=== PATIENT | female | born 1930 | race Caucasian/White ===

== ENCOUNTER 2017-06-07 13:21 | Inpatient (IN) | payer MEDICARE, OTHER ==
[2017-06-07 14:02] LABS: BASO % 0.3 % (0.0-1.0); EOS # 0.1 10^3/uL (0.0-0.50); HEMATOCRIT 37.7 % (36.0-47.0); IMMATURE GRANULOCYTE % 0.3 % (0-3.0); LYMPH # 0.5 10^3/uL (1.5-4.5); LYMPH % 4.9 % (24.0-44.0); MEAN CORPUSCULAR HGB CONC 31.8 g/dl (32.0-36.5); MEAN CORPUSCULAR VOLUME 94.3 fl (80.0-96.0); MONO # 1.2 10^3/uL (0.0-0.8); MONO % 12.2 % (0.0-5.0); NEUTROPHILS # 8.2 10^3/uL (1.8-7.7); NEUTROPHILS % 81.3 % (36.0-66.0); PLATELET COUNT, AUTOMATED 228 10^3/uL (150-450); RED CELL DISTRIBUTION WIDTH 14.2 % (11.5-14.5); WHITE BLOOD COUNT 10.1 10^3/uL (4.0-10.0)
[2017-06-07 14:16] LABS: ALBUMIN 3.1 GM/DL (3.2-5.2); ALBUMIN/GLOBULIN RATIO 0.82 (1.00-1.93); ALKALINE PHOSPHATASE 108 U/L (45-117); ALT/SGPT 23 U/L (12-78); ANION GAP 3 MEQ/L (8-16); AST/SGOT 18 U/L (7-37); BILIRUBIN,DIRECT 0.1 MG/DL (0.0-0.2); BILIRUBIN,TOTAL 0.4 MG/DL (0.2-1.0); BLOOD UREA NITROGEN 26 MG/DL (7-18); CALCIUM LEVEL 9.4 MG/DL (8.8-10.2); CARBON DIOXIDE LEVEL 30 MEQ/L (21-32); CHLORIDE LEVEL 113 MEQ/L (98-107); CPK CREATINE PHOSPHOKINASE 162 U/L (26-192); CREATININE FOR GFR 0.74 MG/DL (0.55-1.30); GLOMERULAR FILTRATION RATE > 60.0 (>32); GLUCOSE, FASTING 118 MG/DL (70-100); POTASSIUM SERUM 4.7 MEQ/L (3.5-5.1); SODIUM LEVEL 146 MEQ/L (136-145); TOTAL PROTEIN 6.9 GM/DL (6.4-8.2); TROPONIN I < 0.02 NG/ML (< 0.10)
[2017-06-07 14:22] LABS: CK-MB VALUE MASS 3.7 NG/ML (<3.6); MB/CK RELATIVE INDEX 2.28 (< OR =4)
[2017-06-07 14:28] LABS: BEDSIDE GLUCOSE 115 MG/DL (83-110)
[2017-06-07] MEDS: METOPROLOL 5 MG/5 ML VIAL IV ×3 (14:33→14:40)
[2017-06-07] MEDS: DIGOXIN INJ 0.5 MG/2 ML AMP (J1160) IV (15:33)
[2017-06-07 17:59] LABS: MAGNESIUM LEVEL 2.3 MG/DL (1.8-2.4)
[2017-06-07] MEDS: D5W/0.2% SODIUM CHLORIDE 1,000 ML IV (18:22)
[2017-06-07] MEDS: DIGOXIN 0.25 MG TAB PO (18:22)
[2017-06-08] MEDS: DIGOXIN 0.25 MG TAB PO (01:26)
[2017-06-08] MEDS: NS 500 ML IV (03:52)
[2017-06-08 04:31] LABS: ALBUMIN 2.7 GM/DL (3.2-5.2); ALBUMIN/GLOBULIN RATIO 0.84 (1.00-1.93); ALKALINE PHOSPHATASE 93 U/L (45-117); ALT/SGPT 23 U/L (12-78); ANION GAP 5 MEQ/L (8-16); AST/SGOT 20 U/L (7-37); BILIRUBIN,TOTAL 0.6 MG/DL (0.2-1.0); BLOOD UREA NITROGEN 18 MG/DL (7-18); CALCIUM LEVEL 8.7 MG/DL (8.8-10.2); CARBON DIOXIDE LEVEL 26 MEQ/L (21-32); CHLORIDE LEVEL 111 MEQ/L (98-107); CREATININE FOR GFR 0.54 MG/DL (0.55-1.30); GLOMERULAR FILTRATION RATE > 60.0 (>32); GLUCOSE, FASTING 127 MG/DL (70-100); POTASSIUM SERUM 4.1 MEQ/L (3.5-5.1); SODIUM LEVEL 142 MEQ/L (136-145); TOTAL PROTEIN 5.9 GM/DL (6.4-8.2)
[2017-06-08] MEDS: ENOXAPARIN 40 MG/0.4 ML SYRINGE (J1650) SC (08:59)
[2017-06-08] MEDS: ASPIRIN 81 MG ENTERIC TAB PO (08:59)
[2017-06-08] MEDS ORDERED: ENOXAPARIN 30 MG/0.3 ML SYR (J1650) SC (09:00)
[2017-06-08] MEDS: D5W/0.2% SODIUM CHLORIDE 1,000 ML IV (10:26)
[2017-06-08] MEDS: DIGOXIN INJ 0.5 MG/2 ML AMP (J1160) IV (13:40)
[2017-06-08 22:07] LABS: DIGOXIN LEVEL 1.1 NG/ML (0.5-2.0)
[2017-06-09] MEDS: ACETAMINOPHEN TAB 650MG DOSE (2X325MG) PO ×2 (03:50→20:51)
[2017-06-09] MEDS: ENOXAPARIN 40 MG/0.4 ML SYRINGE (J1650) SC (08:31)
[2017-06-09] MEDS: ASPIRIN 81 MG ENTERIC TAB PO (08:32)
[2017-06-09] MEDS: DIGOXIN 0.125 MG TAB PO (08:32)
[2017-06-09] MEDS ORDERED: SLF 3 ML SYR IV (14:30)
[2017-06-09] MEDS: SLF 3 ML SYR IV (20:52)
[2017-06-10 05:51] LABS: BASO % 0.8 % (0.0-1.0); EOS # 0.2 10^3/uL (0.0-0.50); EOS % 4.7 % (0.0-3.0); HEMATOCRIT 34.3 % (36.0-47.0); HEMOGLOBIN 10.9 g/dl (12.0-15.5); IMMATURE GRANULOCYTE % 0.4 % (0-3.0); LYMPH # 1.1 10^3/uL (1.5-4.5); LYMPH % 21.5 % (24.0-44.0); MEAN CORPUSCULAR HEMOGLOBIN 29.9 pg (27.0-33.0); MEAN CORPUSCULAR HGB CONC 31.8 g/dl (32.0-36.5); MONO # 0.7 10^3/uL (0.0-0.8); MONO % 12.8 % (0.0-5.0); NEUTROPHILS % 59.8 % (36.0-66.0); PLATELET COUNT, AUTOMATED 217 10^3/uL (150-450); RED BLOOD COUNT 3.65 10^6/uL (4.00-5.40); RED CELL DISTRIBUTION WIDTH 13.9 % (11.5-14.5); WHITE BLOOD COUNT 5.1 10^3/uL (4.0-10.0)
[2017-06-10] MEDS: SLF 3 ML SYR IV ×3 (05:56→20:52)
[2017-06-10 06:29] LABS: ALBUMIN 2.4 GM/DL (3.2-5.2); ALKALINE PHOSPHATASE 89 U/L (45-117); ALT/SGPT 27 U/L (12-78); ANION GAP 5 MEQ/L (8-16); AST/SGOT 21 U/L (7-37); BILIRUBIN,TOTAL 0.3 MG/DL (0.2-1.0); BLOOD UREA NITROGEN 17 MG/DL (7-18); CALCIUM LEVEL 8.5 MG/DL (8.8-10.2); CARBON DIOXIDE LEVEL 26 MEQ/L (21-32); CHLORIDE LEVEL 114 MEQ/L (98-107); DIGOXIN LEVEL 0.9 NG/ML (0.5-2.0); GLOMERULAR FILTRATION RATE > 60.0 (>32); GLUCOSE, FASTING 90 MG/DL (70-100); MAGNESIUM LEVEL 2.2 MG/DL (1.8-2.4); POTASSIUM SERUM 4.2 MEQ/L (3.5-5.1); SODIUM LEVEL 145 MEQ/L (136-145); TOTAL PROTEIN 5.4 GM/DL (6.4-8.2)
[2017-06-10] MEDS: DIGOXIN 0.125 MG TAB PO (09:25)
[2017-06-10] MEDS: ASPIRIN 81 MG ENTERIC TAB PO (09:25)
[2017-06-10] MEDS: ENOXAPARIN 40 MG/0.4 ML SYRINGE (J1650) SC (09:26)
[2017-06-10] MEDS: ACETAMINOPHEN TAB 650MG DOSE (2X325MG) PO (20:52)
[2017-06-11] MEDS: SLF 3 ML SYR IV ×3 (05:33→23:14)
[2017-06-11] MEDS: ENOXAPARIN 40 MG/0.4 ML SYRINGE (J1650) SC (10:03)
[2017-06-11] MEDS: ASPIRIN 81 MG ENTERIC TAB PO (10:03)
[2017-06-11] MEDS: DIGOXIN 0.125 MG TAB PO (10:04)
[2017-06-11] MEDS: METOPROLOL TART 12.5 MG PER 1/2 TAB PO ×2 (18:07→23:48)
[2017-06-12] MEDS: METOPROLOL TART 12.5 MG PER 1/2 TAB PO ×2 (06:16→20:07)
[2017-06-12] MEDS: SLF 3 ML SYR IV ×3 (06:16→20:23)
[2017-06-12] MEDS: DIGOXIN 0.125 MG TAB PO (08:36)
[2017-06-12] MEDS: ENOXAPARIN 40 MG/0.4 ML SYRINGE (J1650) SC (08:36)
[2017-06-12] MEDS: ASPIRIN 81 MG ENTERIC TAB PO (08:36)
[2017-06-13] MEDS: SLF 3 ML SYR IV ×3 (06:00→19:46)
[2017-06-13 06:44] LABS: HEMATOCRIT 34.9 % (36.0-47.0); HEMOGLOBIN 11.4 g/dl (12.0-15.5); MEAN CORPUSCULAR HEMOGLOBIN 30.4 pg (27.0-33.0); MEAN CORPUSCULAR HGB CONC 32.7 g/dl (32.0-36.5); MEAN CORPUSCULAR VOLUME 93.1 fl (80.0-96.0); PLATELET COUNT, AUTOMATED 256 10^3/uL (150-450); RED BLOOD COUNT 3.75 10^6/uL (4.00-5.40); RED CELL DISTRIBUTION WIDTH 14.3 % (11.5-14.5); WHITE BLOOD COUNT 5.8 10^3/uL (4.0-10.0)
[2017-06-13] MEDS: METOPROLOL TART 12.5 MG PER 1/2 TAB PO ×2 (09:14→20:12)
[2017-06-13] MEDS: DIGOXIN 0.125 MG TAB PO (09:14)
[2017-06-13] MEDS: ASPIRIN 81 MG ENTERIC TAB PO (09:14)
[2017-06-14] MEDS: SLF 3 ML SYR IV ×2 (03:59→13:19)
[2017-06-14] MEDS: METOPROLOL TART 12.5 MG PER 1/2 TAB PO ×2 (08:17→19:49)
[2017-06-14] MEDS: ASPIRIN 81 MG ENTERIC TAB PO (08:17)
[2017-06-14] MEDS: DIGOXIN 0.125 MG TAB PO (08:18)
[2017-06-15] MEDS: ASPIRIN 81 MG ENTERIC TAB PO (09:10)
[2017-06-15] MEDS: DIGOXIN 0.125 MG TAB PO (09:11)
[2017-06-15] MEDS: METOPROLOL TART 12.5 MG PER 1/2 TAB PO ×2 (09:12→20:42)
[2017-06-15] MEDS: DOCUSATE SODIUM 100 MG CAP PO ×2 (14:38→20:42)
[2017-06-16 06:16] LABS: HEMOGLOBIN 12.3 g/dl (12.0-15.5); MEAN CORPUSCULAR HEMOGLOBIN 29.9 pg (27.0-33.0); MEAN CORPUSCULAR HGB CONC 32.4 g/dl (32.0-36.5); MEAN CORPUSCULAR VOLUME 92.2 fl (80.0-96.0); PLATELET COUNT, AUTOMATED 293 10^3/uL (150-450); RED BLOOD COUNT 4.12 10^6/uL (4.00-5.40); RED CELL DISTRIBUTION WIDTH 14.4 % (11.5-14.5)
[2017-06-16] MEDS: DOCUSATE SODIUM 100 MG CAP PO ×2 (09:35→20:16)
[2017-06-16] MEDS: DIGOXIN 0.125 MG TAB PO (09:35)
[2017-06-16] MEDS: ASPIRIN 81 MG ENTERIC TAB PO (09:35)
[2017-06-16] MEDS: MIRALAX *UNIT DOSE* 17GM PACKET PO (09:36)
[2017-06-16] MEDS: METOPROLOL TART 12.5 MG PER 1/2 TAB PO ×2 (09:36→20:17)
[2017-06-16] MEDS ORDERED: PROPOFOL 200 MG/20 ML VIAL As Ordered (14:21)
[2017-06-17] MEDS: DOCUSATE SODIUM 100 MG CAP PO ×2 (08:11→20:26)
[2017-06-17] MEDS: ASPIRIN 81 MG ENTERIC TAB PO (08:11)
[2017-06-17] MEDS: METOPROLOL TART 12.5 MG PER 1/2 TAB PO ×2 (08:13→20:27)
[2017-06-17] MEDS: DIGOXIN 0.125 MG TAB PO (08:13)
[2017-06-18] MEDS: METOPROLOL TART 12.5 MG PER 1/2 TAB PO ×2 (09:45→22:14)
[2017-06-18] MEDS: ASPIRIN 81 MG ENTERIC TAB PO (09:46)
[2017-06-18] MEDS: DIGOXIN 0.125 MG TAB PO (09:46)
[2017-06-18] MEDS: DOCUSATE SODIUM 100 MG CAP PO ×2 (09:46→22:13)
[2017-06-19 06:13] LABS: HEMATOCRIT 37.2 % (36.0-47.0); HEMOGLOBIN 11.9 g/dl (12.0-15.5); MEAN CORPUSCULAR HEMOGLOBIN 29.2 pg (27.0-33.0); MEAN CORPUSCULAR VOLUME 91.2 fl (80.0-96.0); PLATELET COUNT, AUTOMATED 282 10^3/uL (150-450); RED BLOOD COUNT 4.08 10^6/uL (4.00-5.40); RED CELL DISTRIBUTION WIDTH 14.3 % (11.5-14.5); WHITE BLOOD COUNT 5.6 10^3/uL (4.0-10.0)
[2017-06-19] MEDS: DOCUSATE SODIUM 100 MG CAP PO ×2 (07:58→20:19)
[2017-06-19] MEDS: METOPROLOL TART 12.5 MG PER 1/2 TAB PO ×2 (07:58→20:19)
[2017-06-19] MEDS: ASPIRIN 81 MG ENTERIC TAB PO (07:59)
[2017-06-19] MEDS: DIGOXIN 0.125 MG TAB PO (07:59)
[2017-06-20] MEDS: ASPIRIN 81 MG ENTERIC TAB PO (08:51)
[2017-06-20] MEDS: METOPROLOL TART 12.5 MG PER 1/2 TAB PO ×2 (08:51→20:26)
[2017-06-20] MEDS: DOCUSATE SODIUM 100 MG CAP PO ×2 (08:51→20:27)
[2017-06-20] MEDS: DIGOXIN 0.125 MG TAB PO (08:51)
[2017-06-20] MEDS: ACETAMINOPHEN TAB 650MG DOSE (2X325MG) PO (20:26)
[2017-06-21] MEDS: DOCUSATE SODIUM 100 MG CAP PO ×2 (08:52→20:21)
[2017-06-21] MEDS: ASPIRIN 81 MG ENTERIC TAB PO (08:52)
[2017-06-21] MEDS: METOPROLOL TART 12.5 MG PER 1/2 TAB PO ×2 (08:52→20:22)
[2017-06-21] MEDS: DIGOXIN 0.125 MG TAB PO (08:55)
[2017-06-21] MEDS: ACETAMINOPHEN TAB 650MG DOSE (2X325MG) PO (20:22)
[2017-06-22] MEDS: DOCUSATE SODIUM 100 MG CAP PO ×2 (08:55→20:51)
[2017-06-22] MEDS: ASPIRIN 81 MG ENTERIC TAB PO (08:55)
[2017-06-22] MEDS: MIRALAX *UNIT DOSE* 17GM PACKET PO (08:55)
[2017-06-22] MEDS: METOPROLOL TART 12.5 MG PER 1/2 TAB PO ×2 (08:57→20:51)
[2017-06-22] MEDS: DIGOXIN 0.125 MG TAB PO (08:57)
[2017-06-23] MEDS: METOPROLOL TART 12.5 MG PER 1/2 TAB PO ×2 (08:09→20:16)
[2017-06-23] MEDS: DIGOXIN 0.125 MG TAB PO (08:09)
[2017-06-23] MEDS: DOCUSATE SODIUM 100 MG CAP PO ×2 (08:09→20:16)
[2017-06-23] MEDS: ASPIRIN 81 MG ENTERIC TAB PO (08:09)
[2017-06-24] MEDS: METOPROLOL TART 12.5 MG PER 1/2 TAB PO (08:25)
[2017-06-24] MEDS: ASPIRIN 81 MG ENTERIC TAB PO (08:25)
[2017-06-24] MEDS: DOCUSATE SODIUM 100 MG CAP PO (08:25)
[2017-06-24] MEDS: DIGOXIN 0.125 MG TAB PO (08:26)
== END 2017-06-24 09:33 | DRG 309 ==
LOC: M MSPAV 06-19 14:29 → M ED 13:21 → M ED INP 16:19 → M PCU 18:28
DX: I48.91 Unspecified atrial fibrillation (principal); E87.0 Hyperosmolality and hypernatremia; I27.20 Pulmonary hypertension, unspecified; F03.90 Unspecified dementia, unspecified severity, without behavioral disturbance, psychotic disturbance, mood disturbance, and anxiety; Z91.14 Patient's other noncompliance with medication regimen

== ENCOUNTER → 2017-07-01 | Outpatient (REF) ==
[2017-07-01 10:38] LABS: HEMATOCRIT 41.8 % (36.0-47.0); HEMOGLOBIN 13.3 g/dl (12.0-15.5); MEAN CORPUSCULAR HEMOGLOBIN 29.9 pg (27.0-33.0); MEAN CORPUSCULAR HGB CONC 31.8 g/dl (32.0-36.5); MEAN CORPUSCULAR VOLUME 93.9 fl (80.0-96.0); PLATELET COUNT, AUTOMATED 229 10^3/uL (150-450); RED BLOOD COUNT 4.45 10^6/uL (4.00-5.40); RED CELL DISTRIBUTION WIDTH 14.2 % (11.5-14.5); WHITE BLOOD COUNT 6.5 10^3/uL (4.0-10.0)
[2017-07-01 11:20] LABS: ANION GAP 7 MEQ/L (8-16); BLOOD UREA NITROGEN 14 MG/DL (7-18); CALCIUM LEVEL 9.1 MG/DL (8.8-10.2); CARBON DIOXIDE LEVEL 28 MEQ/L (21-32); CHLORIDE LEVEL 109 MEQ/L (98-107); GLOMERULAR FILTRATION RATE > 60.0 (>32); GLUCOSE, FASTING 138 MG/DL (70-100); POTASSIUM SERUM 4.2 MEQ/L (3.5-5.1); SODIUM LEVEL 144 MEQ/L (136-145)
== END ==
DX: I48.91 Unspecified atrial fibrillation (principal)

== ENCOUNTER → 2017-07-10 | Outpatient (REF) ==
[2017-07-10 11:30] LABS: DIGOXIN LEVEL 0.5 NG/ML (0.5-2.0)
== END ==
DX: I48.91 Unspecified atrial fibrillation (principal)

== ENCOUNTER → 2017-11-25 | Outpatient (REF) | payer MEDICARE, OTHER ==
[2017-11-25 10:59] LABS: HEMOGLOBIN 13.1 g/dl (12.0-15.5); MEAN CORPUSCULAR HEMOGLOBIN 29.6 pg (27.0-33.0); MEAN CORPUSCULAR HGB CONC 31.2 g/dl (32.0-36.5); MEAN CORPUSCULAR VOLUME 94.8 fl (80.0-96.0); PLATELET COUNT, AUTOMATED 193 10^3/uL (150-450); RED BLOOD COUNT 4.43 10^6/uL (4.00-5.40); RED CELL DISTRIBUTION WIDTH 15.4 % (11.5-14.5); WHITE BLOOD COUNT 6.4 10^3/uL (4.0-10.0)
[2017-11-25 11:38] LABS: ANION GAP 8 MEQ/L (8-16); BLOOD UREA NITROGEN 14 MG/DL (7-18); CALCIUM LEVEL 8.6 MG/DL (8.8-10.2); CARBON DIOXIDE LEVEL 21 MEQ/L (21-32); CHLORIDE LEVEL 111 MEQ/L (98-107); CREATININE FOR GFR 0.61 MG/DL (0.55-1.30); DIGOXIN LEVEL 1.1 NG/ML (0.5-2.0); GLOMERULAR FILTRATION RATE > 60.0 (>32); GLUCOSE, FASTING 118 MG/DL (70-100); POTASSIUM SERUM 4.3 MEQ/L (3.5-5.1); SODIUM LEVEL 140 MEQ/L (136-145)
== END ==
DX: I48.91 Unspecified atrial fibrillation (principal); I25.10 Atherosclerotic heart disease of native coronary artery without angina pectoris
CPT/HCPCS: 80162

== ENCOUNTER → 2018-04-24 | Outpatient (CLI) | payer MEDICARE ==
[~2018-04-24] MED LIST: ACTO5TAB PO; ALPH0.1S OU; ASPI325T5 PO; ASPI81TAEC PO; Acetaminophen Tab PO; BABY81CH PO; BISAC5TA OR; CALC25TA OR; CALCIUM WITH VIT D PO; COLA100C5 PO; COLA50CA3 PO; COMB0.2S OU; DIGO0.12 PO; DULC10SU9 PR; GLAUCOMA EYE DROPS OU; LANO0.1211 PO; LOVE1INJ SQ; METO1TAB87 PO; MOM30SS OR; MORP15TA10 PO; MS C200T PO; ONE A DAY VITAMIN PO; PEG1POW PO; PERC7.5T12 PO; PERCOCET PO; REFR0.5D8 OU; SENO8.6T9 PO; TYLE325T5 PO; XALA0.002 OU; [UNRECOGNIZED DRUG - OTHER] OU
--- NOTE | 2018-04-24 14:11 | REP ---
LEFT KNEE, FOUR VIEWS: HISTORY: Stiffness. There is no acute fracture or dislocation. There is mild narrowing of the joint spaces. Chondrocalcinosis is present. The bony structure is osteopenic. IMPRESSION : Degenerative changes as described above. Electronically Signed by Maxim Larsen MD 04/24/2018 02:14 P
== END ==
LOC: M RAD 11:08
PROVIDERS: ATTEND Family Medicine
DX: M17.12 Unilateral primary osteoarthritis, left knee (principal); M11.262 Other chondrocalcinosis, left knee; M85.862 Other specified disorders of bone density and structure, left lower leg; R26.9 Unspecified abnormalities of gait and mobility; M25.60 Stiffness of unspecified joint, not elsewhere classified

== ENCOUNTER → 2018-04-24 | Outpatient (REF) | payer MEDICARE, OTHER ==
--- NOTE | 2018-04-24 14:15 | REP ---
LEFT HIP, TWO VIEWS: HISTORY: Stiffness. There is no acute fracture or dislocation. There are old healed fractures of the left superior and inferior pubic rami. There is marked narrowing of the joint space with associated sclerosis. Subchondral cysts are present in the head of the femur. The bony structure is osteopenic. IMPRESSION: Degenerative change as described above. Electronically Signed by Maxim Larsen MD 04/24/2018 02:20 P
== END ==
PROVIDERS: ATTEND Family Medicine
DX: M17.12 Unilateral primary osteoarthritis, left knee (principal); M11.262 Other chondrocalcinosis, left knee; M85.862 Other specified disorders of bone density and structure, left lower leg; R26.9 Unspecified abnormalities of gait and mobility; M25.60 Stiffness of unspecified joint, not elsewhere classified

== ENCOUNTER → 2018-06-23 | Outpatient (REF) | payer MEDICARE, OTHER ==
[~2018-06-23] MED LIST changes: +OXYC1TAB23 PO; -PERCOCET PO
[2018-06-23 09:35] LABS: HEMATOCRIT 41.9 % (36.0-47.0); HEMOGLOBIN 13.6 g/dl (12.0-15.5); MEAN CORPUSCULAR HEMOGLOBIN 29.8 pg (27.0-33.0); MEAN CORPUSCULAR HGB CONC 32.5 g/dl (32.0-36.5); MEAN CORPUSCULAR VOLUME 91.9 fl (80.0-96.0); PLATELET COUNT, AUTOMATED 232 10^3/uL (150-450); RED BLOOD COUNT 4.56 10^6/uL (4.00-5.40); WHITE BLOOD COUNT 7.8 10^3/uL (4.0-10.0)
[2018-06-23 10:03] LABS: BLOOD UREA NITROGEN 14 MG/DL (7-18); CALCIUM LEVEL 8.8 MG/DL (8.8-10.2); CARBON DIOXIDE LEVEL 25 MEQ/L (21-32); CHLORIDE LEVEL 110 MEQ/L (98-107); DIGOXIN LEVEL 0.6 NG/ML (0.5-2.0); GLOMERULAR FILTRATION RATE > 60.0 (>32); GLUCOSE, FASTING 108 MG/DL (70-100); POTASSIUM SERUM 4.6 MEQ/L (3.5-5.1); SODIUM LEVEL 142 MEQ/L (136-145)
== END ==
PROVIDERS: ATTEND Family Medicine
DX: I48.91 Unspecified atrial fibrillation (principal)

== ENCOUNTER 2018-07-23 12:59 | Emergency (ER) | payer MEDICARE, OTHER ==
[~2018-07-23 12:59] MED LIST changes: -ACET-907 PO; -BISA10SU2 PR; -ENEMENE6 PR; -MIRA3350 PO; -MOM30SS PO
[2018-07-23] MEDS ORDERED: MOM30SS PO (13:52)
[2018-07-23] MEDS ORDERED: ENEMENE6 PR (13:52)
[2018-07-23] MEDS ORDERED: ACET-907 PO (13:52)
[2018-07-23] MEDS ORDERED: BISA10SU2 PR (13:52)
[2018-07-23] MEDS ORDERED: MIRA3350 PO (13:52)
[2018-07-23] MEDS ORDERED: DIGO0.12 PO (13:52)
--- NOTE | 2018-07-23 15:09 | REP ---
RIGHT HIP, AP PELVIS, THREE VIEWS: HISTORY: Trauma. There is no acute fracture or dislocation. There is minimal narrowing of the right hip joint space with associated sclerosis. There are old healed fractures of the left superior and inferior pubic rami. There is marked narrowing of the left hip joint space with associated sclerosis. Subchondral cysts are present in the head of the left femur. There is slight flattening of the left femoral head. The bony structure is osteopenic. IMPRESSION: Degenerative change as described above. Electronically Signed by Maxim Larsen MD 07/23/2018 03:16 P
--- NOTE | 2018-07-23 15:10 | REP ---
Right knee series: Four views. History: Trauma. Findings: Four views of the right knee demonstrate diffuse osteopenia. There is evidence of a joint effusion with swelling in the suprapatellar bursa. No sunrise view is included. No fracture is seen. There is medial and lateral compartment osteoarthritis. Lateral compartment joint space narrowing and chondrocalcinosis is seen. Impression: Degenerative changes. Osteopenia. Joint effusion. No fracture seen. Electronically Signed by Kieran Washburn MD 07/23/2018 08:14 P
[2018-07-23 16:08] VITALS: BP 131/74
== END 2018-07-23 16:50 | disposition home or self-care (01) ==
LOC: M ED 12:59
DX: S83.91XA Sprain of unspecified site of right knee, initial encounter (principal); W18.39XA Other fall on same level, initial encounter; Y92.128 Other place in nursing home as the place of occurrence of the external cause; I48.91 Unspecified atrial fibrillation; E78.5 Hyperlipidemia, unspecified; H40.9 Unspecified glaucoma; Z79.899 Other long term (current) drug therapy; Z79.82 Long term (current) use of aspirin; Z88.1 Allergy status to other antibiotic agents; Z88.2 Allergy status to sulfonamides

== ENCOUNTER → 2018-07-23 | Outpatient (REF) | payer MEDICARE, OTHER ==
[~2018-07-23] MED LIST changes: +ACET-907 PO; +BISA10SU2 PR; +ENEMENE6 PR; +MIRA3350 PO; +MOM30SS PO
== END ==
PROVIDERS: ATTEND Family Medicine
DX: M25.559 Pain in unspecified hip (principal); Z53.8 Procedure and treatment not carried out for other reasons

== ENCOUNTER → 2018-08-19 | Outpatient (REF) | payer MEDICARE, OTHER ==
[~2018-08-19] MED LIST changes: +ACET-907 PO; +BISA10SU2 PR; +ENEMENE6 PR; +MIRA3350 PO; +MOM30SS PO
[2018-08-19 14:46] LABS: HEMATOCRIT 39.1 % (36.0-47.0); HEMOGLOBIN 12.7 g/dl (12.0-15.5); MEAN CORPUSCULAR HEMOGLOBIN 30.5 pg (27.0-33.0); MEAN CORPUSCULAR HGB CONC 32.5 g/dl (32.0-36.5); PLATELET COUNT, AUTOMATED 239 10^3/uL (150-450); RED BLOOD COUNT 4.16 10^6/uL (4.00-5.40); WHITE BLOOD COUNT 12.2 10^3/uL (4.0-10.0)
[2018-08-19 15:12] LABS: BLOOD UREA NITROGEN 14 MG/DL (7-18); CALCIUM LEVEL 8.3 MG/DL (8.8-10.2); CARBON DIOXIDE LEVEL 25 MEQ/L (21-32); CHLORIDE LEVEL 106 MEQ/L (98-107); CREATININE FOR GFR 0.75 MG/DL (0.55-1.30); GLOMERULAR FILTRATION RATE > 60.0 (>32); GLUCOSE, FASTING 149 MG/DL (70-100); POTASSIUM SERUM 4.4 MEQ/L (3.5-5.1); SODIUM LEVEL 139 MEQ/L (136-145)
== END ==
PROVIDERS: ATTEND Family Medicine
DX: R50.9 Fever, unspecified (principal)

== ENCOUNTER → 2019-01-14 | Outpatient (REF) | payer MEDICARE, OTHER ==
[~2019-01-14] MED LIST changes: -BISA10SU2 PR; +BISA10SU20 PR
[2019-01-14 13:54] LABS: HEMATOCRIT 42.6 % (36.0-47.0); HEMOGLOBIN 13.3 g/dl (12.0-15.5); MEAN CORPUSCULAR HEMOGLOBIN 29.4 pg (27.0-33.0); MEAN CORPUSCULAR HGB CONC 31.2 g/dl (32.0-36.5); MEAN CORPUSCULAR VOLUME 94.2 fl (80.0-96.0); PLATELET COUNT, AUTOMATED 289 10^3/uL (150-450); RED BLOOD COUNT 4.52 10^6/uL (4.00-5.40)
[2019-01-14 14:26] LABS: ALT/SGPT 27 U/L (12-78); BILIRUBIN,TOTAL 0.3 MG/DL (0.2-1.0); BLOOD UREA NITROGEN 17 MG/DL (7-18); CALCIUM LEVEL 9.5 MG/DL (8.8-10.2); CARBON DIOXIDE LEVEL 29 MEQ/L (21-32); CHLORIDE LEVEL 106 MEQ/L (98-107); CREATININE FOR GFR 0.67 MG/DL (0.55-1.30); GLOMERULAR FILTRATION RATE > 60.0 (>32); GLUCOSE, FASTING 129 MG/DL (70-100); POTASSIUM SERUM 4.7 MEQ/L (3.5-5.1); SODIUM LEVEL 140 MEQ/L (136-145)
== END ==
PROVIDERS: ATTEND Family Medicine
DX: R53.1 Weakness (principal); Z79.899 Other long term (current) drug therapy

== ENCOUNTER → 2019-01-26 | Outpatient (REF) | payer MEDICARE, OTHER | PROVIDERS: ATTEND Physician Assistant | DX: I48.91 Unspecified atrial fibrillation (principal); I25.10 Atherosclerotic heart disease of native coronary artery without angina pectoris ==